=== PATIENT | female | born 1940 | race Caucasian/White ===

== ENCOUNTER 2017-05-30 07:25 | Day surgery (SDC) | payer MEDICARE, BC ==
[2017-05-30] MEDS ORDERED: Dexamethasone 4 MG/ML SDV IV ONE (07:26)
[2017-05-30] MEDS ORDERED: Midazolam 1 MG/ML 2 ML SDV IV ONE (07:26)
[2017-05-30] MEDS ORDERED: Povidone-Iodine 5% Sterile Ophth Soln 30 ML Bottle EYELF ONE ×2 (08:00→09:25)
[2017-05-30] MEDS ORDERED: Moxifloxacin 0.5% Ophth Soln 3 ML Bottle EYELF ONE (08:00)
[2017-05-30] MEDS ORDERED: Phenylephrine 10% Ophth Soln 5 ML Bot EYELF ONE (08:00)
[2017-05-30] MEDS ORDERED: Sodium Chloride 0.9% 10 ML Syringe FLUSH PRN (08:00)
[2017-05-30] MEDS ORDERED: Proparacaine 0.5% Ophth Soln 15 ML Bottle EYELF SCH (08:00)
[2017-05-30] MEDS ORDERED: Dilation Soln 1 EA EACH EYELF ONE (08:00)
[2017-05-30] MEDS ORDERED: Timolol Maleate 0.5% Ophth Soln 5 ML Bottle EYELF ONE (08:00)
[2017-05-30] MEDS ORDERED: Midazolam 1 MG/ML 2 ML SDV ONE (08:58)
[2017-05-30] MEDS ORDERED: Dexamethasone 4 MG/ML SDV ONE (08:59)
[2017-05-30] MEDS ORDERED: Lidocaine 1% 30 ML SDV ONE (09:24)
[2017-05-30] MEDS ORDERED: Diclofenac Sodium 0.1% Ophth Soln 5 ML Bottle EYELF ONE (09:25)
[2017-05-30] MEDS ORDERED: Apraclonidine 0.5% Ophth Soln 5 ML Bot EYELF ONE (09:26)
[2017-05-30] MEDS ORDERED: Tetracaine HCl/PF 0.5% 4 ML Bottle EYELF ONE (09:26)
[2017-05-30] MEDS ORDERED: Dexamethasone/Tobramycin 0.1-0.3% Ophth Oint 3.5 GM Tube EYELF ONE (09:26)
[2017-05-30] MEDS ORDERED: Chondroitin Sulfate/Hyaluronate Sodium Ophth Inj 0.75 ML Syringe EYELF ONE (09:27)
[2017-05-30] MEDS ORDERED: Balanced Salt Solution Ophth Irrig 500 ML Bottle IOCULAR ONE (09:27)
[2017-05-30] MEDS ORDERED: Vancomycin 500 MG SDV EYELF ONE (09:27)
[2017-05-30] MEDS ORDERED: Acetylcholine 20 MG/2 ML Intraocular Inj Kit EYELF ONE (09:27)
[2017-05-30] MEDS ORDERED: Chondroitin Sulfate/Hyaluronate Sodium Ophth Inj 0.5 ML Syringe IOCULAR ONE (09:28)
[2017-05-30 10:35] VITALS: BP 135/60
--- NOTE | 2017-05-30 10:48 | OR ---
DATE: 05/30/2017 PREOPERATIVE DIAGNOSES: 1. Visually significant cataract, left eye. 2. Primary open angle glaucoma, left eye. POSTOPERATIVE DIAGNOSES: 1. Visually significant cataract, left eye. 2. Primary open angle glaucoma, left eye. PROCEDURES: 1. Extracapsular cataract extraction with intraocular lens implant. 2. Placement of iStent for glaucoma control. SURGEON: Ubaldo Guaman MD ANESTHESIA: Local MAC. INDICATION: Ms. Lamb was seen in the clinic. She has noticed a slow change in vision, difficulty reading, difficulty with distance tasks. Clinical examination reveals mixed cataract and moderate primary open angle glaucoma. I explained options. I offered cataract surgery and I explained risks including but not limited to, infection, retinal detachment, loss of vision, need for additional surgery, and risks associated with anesthesia. We discussed implant options. I recommended a monofocal implant. I offered surgery with or without the iStent. She requested the iStent procedure. OPERATIVE DESCRIPTION: The patient was prepped and draped in a sterile fashion and topical anesthesia was applied. Attention was placed on the operative eye. A sterile lid speculum was placed to allow operative exposure. Paracentesis was made temporal. Intracameral lidocaine was administered. Viscoelastic was injected. A full-thickness corneal incision was made using the trapezoidal blade. Bent needle cystotome was then used to make a small apm in the anterior capsule and a 360-degree curvilinear capsulorrhexis was created. Nucleus was then hydrodissected and hydrodelinated using balanced saline solution. Nucleus was then decompressed centrally and rotated and noted to be free of adhesions. Nucleus was then removed using the phacoemulsification handpiece. Additional viscoelastic was then injected into the capsular bag and the intraocular lens was inserted into the capsular bag. The iStent portion of the procedure was then performed. Following removal of the nucleus and cortex, the irrigation and aspiration handpiece was inserted to remove viscoelastic from the posterior surface of the IOL. Additional viscoelastic was then inserted into the anterior chamber angle directly opposite the corneal incision. Miochol was injected into the nasal iris to promote pupillary contraction. The patient's head was then rotated 35 degrees away from the initial position. The operating microscope was also rotated 35 degrees to achieve the proper orientation. The gonioprism was then placed onto the eye. The iStent was then inserted into the anterior chamber with the right hand and the stent was introduced into the pigmented trabecular meshwork. The stent was advanced beneath the trabecular meshwork until approximately two-thirds of the body was covered and then the stent was released from the insertion device. The stent was then tapped into its final resting position using the insertion device. The device was then reinspected to ensure that it was securely in position. The viscoelastic was aspirated from the anterior chamber. Wound and paracentesis sites were hydrated using balanced saline solution. Vancomycin 0.1 mL was injected into the anterior chamber. Intraocular lens was inspected and noted to be clear and well centered. Postoperative drops were placed and a sterile eye patch and shield were placed over the operative eye. The patient was then transported to the postoperative recovery area having tolerated the procedure well. No complications occurred. CC: Ubaldo Guaman MD [facility] /[id number]
== END 2017-05-30 10:31 | disposition home or self-care (01) ==
LOC: DL.SDS 07:25
PROVIDERS: ATTEND Ophthalmology
DX: H40.1122 Primary open-angle glaucoma, left eye, moderate stage (principal); H26.9 Unspecified cataract; H53.8 Other visual disturbances; I10 Essential (primary) hypertension; J45.909 Unspecified asthma, uncomplicated; J30.2 Other seasonal allergic rhinitis; Z88.0 Allergy status to penicillin; Z88.1 Allergy status to other antibiotic agents; Z88.2 Allergy status to sulfonamides; Z88.8 Allergy status to other drugs, medicaments and biological substances; Z90.710 Acquired absence of both cervix and uterus; Z98.890 Other specified postprocedural states; Z79.899 Other long term (current) drug therapy
CPT/HCPCS: 0191T; 66984; A9270; C1780; C1783; J1100; J2250; J3370; J7050; 00142